=== PATIENT | male | born 1995 | race Two or more races ===

== ENCOUNTER 2018-03-06 00:31 | Emergency (ER) | payer MEDICAID ==
[~2018-03-06] VITALS: Ht 162.6 cm; Wt 49.9 kg
[2018-03-06 00:48] VITALS: BP 126/73
== END 2018-03-06 01:13 | disposition home or self-care (01) ==
LOC: ER 00:37
DX: J03.90 Acute tonsillitis, unspecified (principal); F17.200 Nicotine dependence, unspecified, uncomplicated
CPT/HCPCS: 99283; A4606; Z7610